=== PATIENT | female | born 1960 | race Caucasian/White ===

== ENCOUNTER 2017-04-15 19:05 | Inpatient (IN) | payer OTHER ==
[~2017-04-15] VITALS: Ht 167.6 cm; Wt 40.5 kg
[~2017-04-15 19:05] MED LIST: CLONIDINE HCL0.1 MG PO; COMBIVENT RESPIM4 GM IH
[2017-04-15 19:53] LABS: EOSINOPHIL (%) 0.1 % (0-5); HEMATOCRIT 35.7 % (36.0-46.0); IMMATURE GRANULOCYTE (%) 0.6 % (0.0-0.7); IMMATURE GRANULOCYTE COUNT 0.1 K/uL; INSTRUMENT ABS NEUTROPHIL CT 6.4 K/uL; LYMPHOCYTE COUNT 1.6 K/uL (1.0-2.8); MCH 32.5 PG (29.0-34.0); MCHC 35.9 G/DL (30.0-36.0); MCV 90.6 FL (83-99); MEAN PLAT.VOLUME 9.2 uM^3 (9.5-12.4); MONOCYTE (%) 12.3 % (3-12); MONOCYTE COUNT 1.1 K/uL (0-0.8); NEUTROPHIL (%) 69.5 % (45-76); NEUTROPHIL COUNT 6.4 K/uL (1.8-6.4); NRBC (%) 0.3 /100 WBC (0-0); PLATELET COUNT 234 K/uL (156-360); RBC DIS.WIDTH-CV 12.7 % (11.8-14.6); RBC DIS.WIDTH-SD 41.4 % (39-53); RED BLOOD COUNT 3.94 M/uL (3.80-5.20); WHITE BLOOD COUNT 9.3 K/uL (4.1-10.2)
[2017-04-15 19:59] LABS: INTER. NORMALIZED RATIO 1.1; PROTHROMBIN TIME 11.9 SEC (10.2-12.9)
[2017-04-15 20:01] LABS: CHLORIDE 89 mEq/L (99-109); POTASSIUM 3.2 mEq/L (3.7-5.4); SODIUM 128 mEq/L (136-147)
[2017-04-15 20:02] LABS: PTT 24.8 SEC (25-37)
[2017-04-15 20:03] LABS: GLUCOSE 100 mg/dL (70-99)
[2017-04-15 20:05] LABS: ANION GAP 17 MEQ/L (2-14); TOTAL BILIRUBIN 1.2 mg/dL (0.0-1.0)
[2017-04-15 20:07] LABS: ALKALINE PHOSPHATASE 136 IU/L (3-129); GFR ESTIMATE (CALCULATED) > 59 mL/min/
[2017-04-15 20:08] LABS: UREA NITROGEN (BUN) 8 mg/dL (9-23)
[2017-04-15 20:10] LABS: CREATINE KINASE 15 IU/L (1-294); TOTAL CK 15 IU/L (1-294)
[2017-04-15 20:14] LABS: TROP-I INTERPRETATION NEGATIVE; TROPONIN-I < 0.01 ng/mL (0.0-0.30)
[2017-04-15 21:14] LABS: ADD MIUA? NO; BILIRUBIN NEGATIVE; BLOOD NEGATIVE; COLOR YELLOW ((YELLOW)); GLUCOSE (STRIP) NEGATIVE; KETONES 5; LEUKOCYTES NEGATIVE; NITRITE NEGATIVE; PROTEIN (STRIP) NEGATIVE; SPECIFIC GRAVITY 1.006 (1.000-1.030); UCUL ADDED? NO; UROBILINOGEN 0.2 MG/DL (0.2-1.0)
[2017-04-15 22:59] LABS: MAGNESIUM 1.9 mg/dL (1.3-2.7)
[2017-04-16 02:37] VITALS: BP 137/76
[2017-04-16 04:15] VITALS: BP 137/77
[2017-04-16 06:11] LABS: HEMATOCRIT 30.6 % (36.0-46.0); MCH 32.3 PG (29.0-34.0); MCHC 35.3 G/DL (30.0-36.0); MCV 91.6 FL (83-99); MEAN PLAT.VOLUME 9.7 uM^3 (9.5-12.4); PLATELET COUNT 221 K/uL (156-360); RBC DIS.WIDTH-CV 12.8 % (11.8-14.6); RBC DIS.WIDTH-SD 43.2 % (39-53); RED BLOOD COUNT 3.34 M/uL (3.80-5.20); WHITE BLOOD COUNT 7.8 K/uL (4.1-10.2)
[2017-04-16 06:12] LABS: TROP-I INTERPRETATION NEGATIVE; TROPONIN-I < 0.01 ng/mL (0.0-0.30)
[2017-04-16 06:18] LABS: ANION GAP 9 MEQ/L (2-14); CHLORIDE 96 MEQ/L (99-109); GFR ESTIMATE (CALCULATED) > 59 mL/min/; GLUCOSE 127 mg/dL (70-99); SAMPLE HEMOLYSIS CHECK 0; SAMPLE ICTERIC CHECK 0; SAMPLE LIPEMIA CHECK 0; SODIUM 130 MEQ/L (136-147); UREA NITROGEN (BUN) 6 mg/dL (9-23)
[2017-04-16 07:50] VITALS: BP 133/75
[2017-04-16 08:24] LABS: Estimated Average Glucose 94 mg/dL (70-123); HEMOGLOBIN A1c (GLYCOHEMOGLOB) 4.9 % HGB (Below 5.7)
[2017-04-16 12:40] LABS: TROP-I INTERPRETATION NEGATIVE; TROPONIN-I < 0.01 ng/mL (0.0-0.30)
[2017-04-16 16:11] VITALS: BP 105/58
[2017-04-17 01:03] VITALS: BP 97/55
[2017-04-17 04:38] VITALS: BP 127/72
[2017-04-17 06:36] LABS: MCH 33.6 PG (29.0-34.0); MCHC 34.5 G/DL (30.0-36.0); MEAN PLAT.VOLUME 9.6 uM^3 (9.5-12.4); PLATELET COUNT 206 K/uL (156-360); RBC DIS.WIDTH-CV 13.3 % (11.8-14.6); RBC DIS.WIDTH-SD 47.1 % (39-53); RED BLOOD COUNT 2.98 M/uL (3.80-5.20); WHITE BLOOD COUNT 5.9 K/uL (4.1-10.2)
[2017-04-17 06:44] LABS: ANION GAP 2 MEQ/L (2-14); CHLORIDE 102 MEQ/L (99-109); GFR ESTIMATE (CALCULATED) > 59 mL/min/; MAGNESIUM 2.1 mg/dl (1.3-2.7); SAMPLE HEMOLYSIS CHECK 0; SAMPLE ICTERIC CHECK 0; SAMPLE LIPEMIA CHECK 0; SODIUM 130 MEQ/L (136-147); UREA NITROGEN (BUN) 4 mg/dL (9-23)
[2017-04-17 06:45] LABS: MCV 97.3 FL (83-99)
[2017-04-17 06:50] LABS: GLUCOSE 84 mg/dL (70-99); POTASSIUM 3.7 MEQ/L (3.7-5.4)
[2017-04-17 07:40] VITALS: BP 116/65
[2017-04-17 11:11] VITALS: BP 100/66
[2017-04-17] MEDS ORDERED: ADVAIR 100/501 DISK IH (14:04)
[2017-04-17] MEDS ORDERED: ERGOCALCIF50000 UNIT PO (14:04)
[2017-04-17] MEDS ORDERED: CYMBALTA30 MG PO (14:04)
[2017-04-17 16:00] VITALS: BP 118/70
[2017-04-18 00:02] VITALS: BP 143/76
[2017-04-18 07:04] LABS: HEMATOCRIT 29.2 % (36.0-46.0); MCH 32.7 PG (29.0-34.0); MCHC 33.6 G/DL (30.0-36.0); MCV 97.3 FL (83-99); MEAN PLAT.VOLUME 9.7 uM^3 (9.5-12.4); PLATELET COUNT 223 K/uL (156-360); RBC DIS.WIDTH-CV 13.1 % (11.8-14.6); RBC DIS.WIDTH-SD 46.9 % (39-53); WHITE BLOOD COUNT 8.2 K/uL (4.1-10.2)
[2017-04-18 07:36] LABS: ALKALINE PHOSPHATASE 83 IU/L (3-129); ANION GAP 7 MEQ/L (2-14); CHLORIDE 106 MEQ/L (99-109); GFR ESTIMATE (CALCULATED) > 59 mL/min/; GLUCOSE 94 mg/dL (70-99); MAGNESIUM 1.9 mg/dl (1.3-2.7); POTASSIUM 3.3 MEQ/L (3.7-5.4); SAMPLE HEMOLYSIS CHECK 0; SAMPLE ICTERIC CHECK 0; SAMPLE LIPEMIA CHECK 0; SODIUM 138 MEQ/L (136-147); TOTAL BILIRUBIN 0.4 MG/DL (0.0-1.0); UREA NITROGEN (BUN) 3 mg/dL (9-23)
[2017-04-18 08:12] VITALS: BP 145/78
[2017-04-18 10:27] VITALS: BP 120/75
[2017-04-18 16:26] VITALS: BP 155/73
[2017-04-19 00:03] VITALS: BP 163/84
[2017-04-19 05:58] LABS: HEMATOCRIT 28.9 % (36.0-46.0); MCH 32.8 PG (29.0-34.0); MCHC 33.6 G/DL (30.0-36.0); MCV 97.6 FL (83-99); MEAN PLAT.VOLUME 9.8 uM^3 (9.5-12.4); PLATELET COUNT 241 K/uL (156-360); RBC DIS.WIDTH-CV 13.5 % (11.8-14.6); RED BLOOD COUNT 2.96 M/uL (3.80-5.20); WHITE BLOOD COUNT 9.9 K/uL (4.1-10.2)
[2017-04-19 06:21] LABS: ANION GAP 6 MEQ/L (2-14); CHLORIDE 106 MEQ/L (99-109); GFR ESTIMATE (CALCULATED) > 59 mL/min/; GLUCOSE 104 mg/dL (70-99); POTASSIUM 4.1 MEQ/L (3.7-5.4); SAMPLE HEMOLYSIS CHECK 0; SAMPLE ICTERIC CHECK 0; SAMPLE LIPEMIA CHECK 0; SODIUM 136 MEQ/L (136-147); UREA NITROGEN (BUN) 5 mg/dL (9-23)
[2017-04-19 07:31] VITALS: BP 125/88
[2017-04-19 16:00] VITALS: BP 126/52
[2017-04-20 00:03] VITALS: BP 152/87
[2017-04-20 06:47] LABS: HEMATOCRIT 30.5 % (36.0-46.0); MCH 33.5 PG (29.0-34.0); MCHC 34.4 G/DL (30.0-36.0); MCV 97.4 FL (83-99); MEAN PLAT.VOLUME 9.9 uM^3 (9.5-12.4); PLATELET COUNT 270 K/uL (156-360); RBC DIS.WIDTH-CV 13.9 % (11.8-14.6); RBC DIS.WIDTH-SD 49.1 % (39-53); RED BLOOD COUNT 3.13 M/uL (3.80-5.20)
[2017-04-20 07:09] LABS: ANION GAP 4 MEQ/L (2-14); CHLORIDE 105 MEQ/L (99-109); GFR ESTIMATE (CALCULATED) > 59 mL/min/; GLUCOSE 100 mg/dL (70-99); POTASSIUM 3.9 MEQ/L (3.7-5.4); SAMPLE HEMOLYSIS CHECK 0; SAMPLE ICTERIC CHECK 0; SAMPLE LIPEMIA CHECK 0; SODIUM 136 MEQ/L (136-147); UREA NITROGEN (BUN) 6 mg/dL (9-23)
[2017-04-20 08:00] VITALS: BP 148/86
[2017-04-20 12:00] VITALS: BP 139/80
[2017-04-20 16:14] VITALS: BP 103/63
[2017-04-20 23:08] VITALS: BP 146/74
[2017-04-21 07:01] LABS: ANION GAP 7 MEQ/L (2-14); CHLORIDE 104 MEQ/L (99-109); GFR ESTIMATE (CALCULATED) > 59 mL/min/; GLUCOSE 101 mg/dL (70-99); POTASSIUM 4.2 MEQ/L (3.7-5.4); SAMPLE HEMOLYSIS CHECK 0; SAMPLE ICTERIC CHECK 0; SAMPLE LIPEMIA CHECK 0; SODIUM 135 MEQ/L (136-147); UREA NITROGEN (BUN) 9 mg/dL (9-23)
[2017-04-21 07:02] LABS: MAGNESIUM 1.4 mg/dl (1.3-2.7)
[2017-04-21 07:42] VITALS: BP 157/86
[2017-04-21 15:46] VITALS: BP 127/69
[2017-04-21 23:38] VITALS: BP 157/77
[2017-04-22 07:27] VITALS: BP 146/83
[2017-04-22] MEDS ORDERED: NICOTINE PATCH1 EAC2 TD (10:26)
[2017-04-22] MEDS ORDERED: DUONEB 2.5-0.5 M3 ML AEROSOL (10:26)
[2017-04-22] MEDS ORDERED: FOLIC ACID1 MG PO (10:26)
[2017-04-22] MEDS ORDERED: THERAGRAN1 TABLET PO (10:27)
[2017-04-22] MEDS ORDERED: THIAMINE HCL100 MG PO (10:27)
[2017-04-22 15:19] VITALS: BP 148/86
== END 2017-04-22 18:28 | DRG 896 ==
LOC: EME 19:05 → EDOF 21:25 → 5EAST 21:25 → ENRESERV 21:32 → 5EAST 23:59 → ENPENDDIS 04-22 → EDPENDDISTM 04-22 18:00 → 5EAST 04-22 18:28
PROVIDERS: Emergency Medicine; Hospitalist; Internal Medicine
DX: F10.230 Alcohol dependence with withdrawal, uncomplicated (principal); E51.2 Wernicke's encephalopathy; J44.9 Chronic obstructive pulmonary disease, unspecified; S92.511A Displaced fracture of proximal phalanx of right lesser toe(s), initial encounter for closed fracture; I10 Essential (primary) hypertension; E87.6 Hypokalemia; E87.1 Hypo-osmolality and hyponatremia; E46 Unspecified protein-calorie malnutrition; Z68.1 Body mass index [BMI] 19.9 or less, adult; J84.10 Pulmonary fibrosis, unspecified; G93.41 Metabolic encephalopathy; D64.9 Anemia, unspecified; Z93.3 Colostomy status; F17.200 Nicotine dependence, unspecified, uncomplicated
CPT/HCPCS: 70450; 70551; 71010; 71250; 73630; 80048; 80053; 81003; 82272; 82550; 82553; 82607; 82746; 83036; 83735; 84100; 84443; 84484; 85025; 85027; 85610; 85730; 93005; 95819; 97530 GO; 97530 GP; 99202; 99281; 99285; J0456; J0696; J1644; J2060; J2405; J3411; J3475; J7030; J7040; J7042; J7050